=== PATIENT | female | born 1935 | race Asian ===

== ENCOUNTER 2019-10-01 07:51 | Emergency (ER) | payer MEDICARE, MEDICAID ==
[~2019-10-01] VITALS: Ht 160 cm; Wt 68.0 kg
--- NOTE | 2019-10-01 07:51 | NUR ---
ED Nurse Note: airborne precation initiated, pt. was given surgical mask
--- NOTE | 2019-10-01 07:51 | NUR ---
ED Nurse Note: patient brought into ED from home by ambulance RA 26 due to coughing since last night. patient denies any recent traveling outside of [place]. patient denies any fever or chills. afebrile at the time of triage. patient denies SOB/dyspnea. patient is alert awake x4 ambulatory, breathing unlabored and even, speaking in full sentences. patient provided with a mask.
[2019-10-01 07:52] VITALS: BP 124/72
--- NOTE | 2019-10-01 07:57 | NUR ---
ED Nurse Note: son at bedside.
--- NOTE | 2019-10-01 08:04 | NUR ---
ED Nurse Note: son reports that patient has been feeling weak and ill since yesterday, son reports patient has a little bit of diarrhea and vomiting as well. son reports patient had fever, but was not able to get an accurate temperature. son reports that patient lives in an apartment that comes in contact with many people traveling outside of [place], son is concerned that patient may be exposed to virus. Dr Dimas at bedside examining patient, per Dr. Dimas, patient does not need to be isolated at this time.
--- NOTE | 2019-10-01 08:09 | Emergency Room Report ---
History of Present Illness General Chief Complaint: Upper Respiratory Illness Source: Patient Present Illness HPI Disclaimer: Please note that this report is being documented using DRAGON technology. This can lead to erroneous entry secondary to incorrect interpretation by the dictating instrument. HPI: 83-year-old female presents for evaluation of cough. Symptoms began yesterday. Son notes a productive cough over the evening with 2 episodes of nonbloody nonbilious emesis. Subjective fevers noted but no objective temperature readings. Reports chills. Denies chest pain, abdominal pain, nausea at this time. Denies diarrhea or rash. No recent travel. Arrives afebrile. Patient arrives by ambulance. 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 The patient has had no travel. No known contact with anyone traveling from [place]. PMH: None reported PSH: None reported Allergies: None reported Social Hx: None reported Allergies: Coded Allergies: No Known Allergies (Unverified , 10/01/19) Nursing Documentation-PMH Past Medical History: No History, Except For Review of Systems All Other Systems: negative except mentioned in HPI Physical Exam Vital Signs Date Time Temp Pulse Resp B/P (MAP) Pulse Ox O2 Delivery O2 Flow Rate FiO2 10/01/19 07:52 98.4 60 15 124/72 (89) 99 Room Air General: Awake and alert, no acute distress HEENT: NC/AT. EOMI. Cardiovascular: RRR. S1 and S2 normal. No murmur appreciated Resp: Normal work of breathing. No cough, wheezing or crackles appreciated Abdomen: Abdomen is soft, nondistended. Nontender Skin: Intact. No abrasions, laceration or rash over the exposed skin MSK: Normal tone and bulk. Moving all extremities. No obvious deformity. Neuro: Awake and alert. Mentating appropriately. Medical Decision Making Diagnostic Impression: Primary Impression: Respiratory infection ER Course 83-year-old female presents for evaluation of cough and emesis. Describing body wide aches and pains as well. Overall appears to be a viral syndrome, possibly influenza though pneumonia, bronchitis, gastritis, gastroenteritis also on the differential. 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 The patient herself has no travel history and arrives afebrile. Laboratory Tests Test 10/01/19 08:09 White Blood Count 5.6 K/UL (4.8-10.8) Red Blood Count 4.00 M/UL (4.20-5.40) L Hemoglobin 13.5 G/DL (12.0-16.0) Hematocrit 36.1 % (37.0-47.0) L Mean Corpuscular Volume 90 FL (80-99) Mean Corpuscular Hemoglobin 33.6 PG (27.0-31.0) H Mean Corpuscular Hemoglobin Concent 37.3 G/DL (32.0-36.0) H Red Cell Distribution Width 9.5 % (11.6-14.8) L Platelet Count 229 K/UL (150-450) Mean Platelet Volume 6.2 FL (6.5-10.1) L Neutrophils (%) (Auto) 47.9 % (45.0-75.0) Lymphocytes (%) (Auto) 38.1 % (20.0-45.0) Monocytes (%) (Auto) 9.5 % (1.0-10.0) Eosinophils (%) (Auto) 2.6 % (0.0-3.0) Basophils (%) (Auto) 1.9 % (0.0-2.0) Sodium Level 147 MMOL/L (136-145) H Potassium Level 4.3 MMOL/L (3.5-5.1) Chloride Level 110 MMOL/L (98-107) H Carbon Dioxide Level 26 MMOL/L (21-32) Anion Gap 11 mmol/L (5-15) Blood Urea Nitrogen 23 mg/dL (7-18) H Creatinine 0.8 MG/DL (0.55-1.30) Estimate Glomerular Filtration Rate > 60 mL/min (>60) Glucose Level 100 MG/DL (74-106) Calcium Level 8.8 MG/DL (8.5-10.1) Total Bilirubin 0.8 MG/DL (0.2-1.0) Aspartate Amino Transferase (AST) 24 U/L (15-37) Alanine Aminotransferase (ALT) 30 U/L (12-78) Alkaline Phosphatase 58 U/L (46-116) Total Protein 7.3 G/DL (6.4-8.2) Albumin 3.8 G/DL (3.4-5.0) Globulin 3.5 g/dL Albumin/Globulin Ratio 1.1 (1.0-2.7) Microbiology Date/Time Source Procedure Growth Status 10/01/19 08:09 Nasal Nares - Final Complete 10/01/19 08:09 Nasal Nares - Final Complete Chest X-Ray Diagnostic Results Chest X-Ray Diagnostic Results : Chest X-Ray Ordered: Yes # of Views/Limited/Complete: 1 View Indication: Other - cough EP Interpretation: Yes Interpretation: no consolidation, no effusion, no pneumothorax Impression: No acute disease Electronically Signed by: Electronically signed by Dr. Julien Dimas Reevaluation Time: 09:16 Last Vital Signs Date Time Temp Pulse Resp B/P (MAP) Pulse Ox O2 Delivery O2 Flow Rate FiO2 10/01/19 07:57 60 15 Room Air 10/01/19 07:52 98.4 124/72 (89) 99 Reevaluation Impression Labs and chest x-ray are unremarkable. Flu swabs are negative. Discussed with Christa West at the [facility] regarding the patient's coronavirus risk. They are not recommending hospitalization or further testing at this time. Patient is afebrile, chest x-ray unremarkable and no definite contact noted with any travelers from [place]. Offered the patient's Tamiflu however they declined. Will continue symptomatic care and PMD follow-up. Discussed reasons to return to the emergency department develop proper hand hygiene. Patient understands and agrees with the treatment plan. Disposition: HOME, SELF-CARE Condition: Stable Scripts Guaifenesin/Dextromethorphan* (Guaifenesin Dm Syrup*) 5 Ml Syrup 10 ML ORAL Q8H PRN for For Cough, #118 ML Prov: Julien Dimas MD 10/01/19 Julien Dimas MD Oct 01, 2019 08:09
--- NOTE | 2019-10-01 08:20 | NUR ---
ED Nurse Note: pt's son requested to talk to the ERMD again. ERMD made aware. x-ray at bedside.
[2019-10-01] MEDS ORDERED: MULTIVITAMINS1 EAC2 ORAL (08:21)
[2019-10-01 08:22] LABS: BASOPHILS % (AUTO) 1.9 % (0.0-2.0); EOSINOPHILS % (AUTO) 2.6 % (0.0-3.0); HEMATOCRIT 36.1 % (37.0-47.0); HEMOGLOBIN 13.5 G/DL (12.0-16.0); LYMPHOCYTES % (AUTO) 38.1 % (20.0-45.0); MEAN CORPUSCULAR VOLUME 90 FL (80-99); MONOCYTES % (AUTO) 9.5 % (1.0-10.0); NEUTROPHILS % (AUTO) 47.9 % (45.0-75.0); PLATELET COUNT 229 K/UL (150-450); RED CELL DISTRIBUTION WIDTH 9.5 % (11.6-14.8); WHITE BLOOD COUNT 5.6 K/UL (4.8-10.8)
[2019-10-01 08:32] LABS: ANION GAP 11 mmol/L (5-15); BLOOD UREA NITROGEN 23 mg/dL (7-18); CALCIUM 8.8 MG/DL (8.5-10.1); CARBON DIOXIDE 26 MMOL/L (21-32); CHLORIDE 110 MMOL/L (98-107); CREATININE 0.8 MG/DL (0.55-1.30); POTASSIUM 4.3 MMOL/L (3.5-5.1); SODIUM 147 MMOL/L (136-145)
[2019-10-01 08:39] LABS: ALANINE AMINOTRANSFERASE 30 U/L (12-78); ALBUMIN 3.8 G/DL (3.4-5.0); ALBUMIN/GLOBULIN RATIO 1.1 (1.0-2.7); ALKALINE PHOSPHATASE 58 U/L (46-116); ASPARTATE AMINO TRANSFERASE 24 U/L (15-37); BILIRUBIN,TOTAL 0.8 MG/DL (0.2-1.0)
--- NOTE | 2019-10-01 09:08 | NUR ---
ED Nurse Note: received a call from [facility], Per Christa West, she is clearing pt. from any suspiscion of morin virus
[2019-10-01] MEDS ORDERED: GUAIFENESIN DM118 M1 ORAL (09:15)
[2019-10-01 09:30] VITALS: BP 120/71
[2019-10-01 09:35] VITALS: BP 120/71
--- NOTE | 2019-10-01 09:35 | NUR ---
ER DISCHARGE NOTE: Patient is cleared to be discharged per ERMD DR SCHWARTZ, pt is aox4, on room air, with stable vital signs. pt was given dc and prescription instructions, pt was able to verbalize understanding, pt id band and iv site removed without complications. patient/son explained that patient is cleared by [facility] for at this time. patient/son verbalized understanding. pt is able to ambulate with steady gait. pt took all belongings.
--- NOTE | 2019-10-01 11:46 | Diagnostic Imaging Report ---
Indication: Dyspnea Comparison: None A single view chest radiograph was obtained. Findings: Cardiomediastinal appearance is within normal limits for age. The lungs are clear. Pulmonary vascularity is appropriate. The diaphragmatic contour is smooth and costophrenic angles are sharp. No pleural effusions are identified. The bones are osteopenic. Impression: No acute findings
== END 2019-10-01 09:33 | disposition home or self-care (01) ==
LOC: EDBD 07:51 → EMR 08:15
DX: J98.8 Other specified respiratory disorders (principal)
CPT/HCPCS: 36415; 71045; 80053; 85025; 86710; 99283